=== PATIENT | male | born 1945 | race Caucasian/White ===

== ENCOUNTER 2017-09-22 12:25 | Emergency (ER) | payer OTHER ==
[~2017-09-22 12:25] MED LIST: CLON0.5T3 PO; GABA300C10 PO; NOR10T PO; QUET50TA PO; SERT-274 PO
== END 2017-09-22 14:06 | disposition left against medical advice (07) ==
LOC: ER 12:25
DX: R10.9 Unspecified abdominal pain (principal); Z53.21 Procedure and treatment not carried out due to patient leaving prior to being seen by health care provider

== ENCOUNTER 2019-07-01 10:31 | Emergency (ER) | payer OTHER ==
[~2019-07-01] VITALS: Ht 172.7 cm; Wt 72.6 kg
[~2019-07-01 10:31] MED LIST changes: -CLON0.5T3 PO; +DICY10CA12 PO; +DOCU-94 PO; +DOXY-338 PO; -GABA300C10 PO; +IPRAAER6 IN; +OME20T PO; +PRA25T PO
[2019-07-01] MEDS ORDERED: SODIUM CHLORIDE 0.9% 1,000 ML IV ONE (11:29)
[2019-07-01 12:33] LABS: Basophils # (auto) 0 uL; Basophils % (auto) 0.4 % (0.0-2.0); Eosinophils # (auto) 0.1 uL; Eosinophils % (auto) 2.4 % (0.0-7.0); Hematocrit 36.6 % (41.0-53.0); Hemoglobin 12.3 g/dL (13.5-17.5); Lymphocytes # (auto) 0.5 uL; Lymphocytes % (auto) 8.3 % (10.0-50.0); Mean Corpuscular Hemoglobin 32.4 pg (28.0-32.0); Mean Corpuscular Hgb Conc. 33.6 g/dL (32.0-36.0); Mean Corpuscular Volume 96.2 fL (80.0-100.0); Monocytes # (auto) 0.5 uL; Monocytes % (auto) 9.7 % (0.0-12.0); Neutrophils # (auto) 4.5 uL; Neutrophils % (auto) 79.2 % (37.0-80.0); Nucleated Red Blood Cells % 0.1 %; Platelet Count (auto) 209 10^3/uL (140-450); Red Cell Distribution Width 13.1 % (11.8-14.3); White Blood Cell 5.6 10^3/uL (4.4-10.8)
[2019-07-01 12:34] LABS: Albumin 3.8 g/dL (3.4-5.0); Anion Gap 5 (5-15); Blood Urea Nitrogen 14 mg/dL (7-18); Calcium 9.2 mg/dL (8.5-10.1); Carbon Dioxide 26 mmol/L (21-32); Chloride 103 mmol/L (98-107); Glucose 101 mg/dL (74-106); Potassium 4.7 mmol/L (3.5-5.1); Sodium 134 mmol/L (136-145)
[2019-07-01 12:42] LABS: Alanine Aminotransferase 15 U/L (16-61); Alkaline Phosphatase 98 U/L (45-117); Aspartate Aminotransferase 23 U/L (15-37); BUN/Creatinine Ratio 9.4; Bilirubin, Total 0.5 mg/dL (0.2-1.0); GFR African American 59 mL/min; GFR Non-African American 49 mL/min; Total Protein 8.8 g/dL (6.4-8.2)
[2019-07-01 12:49] LABS: INR 1.13 (0.9-1.15); Partial Thromboplastin Time 29.3 sec (23.64-32.05)
[2019-07-01] MEDS ORDERED: ALBUTEROL SULF 2.5 MG/0.5ML(0.5%) NEB SOLN NEB ONE (13:15)
[2019-07-01] MEDS ORDERED: IPRATROPIUM BROM 0.5 MG/2.5ML INH SOL NEB ONE (13:15)
[2019-07-01 13:16] VITALS: BP 131/72
== END 2019-07-01 14:08 | disposition home or self-care (01) ==
LOC: ER 10:31
DX: F41.9 Anxiety disorder, unspecified (principal); C45.9 Mesothelioma, unspecified; I10 Essential (primary) hypertension; Z90.49 Acquired absence of other specified parts of digestive tract; M54.9 Dorsalgia, unspecified
CPT/HCPCS: 36415; 71250; 80053; 83880; 84484; 85025; 85610; 85730; 93005; 94640; 99284; J7030; J7611; J7644

== ENCOUNTER 2020-11-12 13:14 | Inpatient (IN) | payer OTHER ==
[~2020-11-12] VITALS: Ht 177.8 cm; Wt 75.8 kg
[~2020-11-12 13:14] MED LIST changes: -PRA25T PO; +PRAM0.252 PO; -SERT-274 PO; +SERT50TA19 PO
[2020-11-12] MEDS ORDERED: methylPREDNISolone SOD SUCC 125 MG/2 ML VL IV ONE (13:45)
[2020-11-12] MEDS ORDERED: IPRATROPIUM BROM 0.5 MG/2.5ML INH SOL NEB ONE (13:45)
[2020-11-12] MEDS ORDERED: ALBUTEROL SULF 2.5 MG/0.5ML(0.5%) NEB SOLN NEB ONE (13:45)
[2020-11-12 14:06] LABS: Basophils # (auto) 0.1 10 ^3/uL (0-0.2); Eosinophils # (auto) 0.2 10 ^3/uL (0-0.8); Eosinophils % (auto) 2.1 % (0.0-7.0); Hemoglobin 10.3 g/dL (13.5-17.5); Lymphocytes # (auto) 0.7 10 ^3/uL (0.4-5.4); Lymphocytes % (auto) 7.7 % (10.0-50.0); Mean Corpuscular Hemoglobin 33.2 pg (28.0-32.0); Mean Corpuscular Hgb Conc. 34.5 g/dL (32.0-36.0); Mean Corpuscular Volume 96.4 fL (80.0-100.0); Monocytes % (auto) 11.8 % (0.0-12.0); Neutrophils # (auto) 6.8 10 ^3/uL (1.6-8.6); Neutrophils % (auto) 77.4 % (37.0-80.0); Nucleated Red Blood Cells % 0.1 %; Platelet Count (auto) 236 10^3/uL (140-450); Red Blood Cells 3.11 10^6/uL (4.5-5.90); Red Cell Distribution Width 13.2 % (11.8-14.3); White Blood Cell 8.7 10^3/uL (4.4-10.8)
[2020-11-12 14:21] LABS: Albumin 3.3 g/dL (3.4-5.0); Anion Gap 6 (5-15); Blood Urea Nitrogen 26 mg/dL (7-18); Calcium 8.6 mg/dL (8.5-10.1); Carbon Dioxide 26 mmol/L (21-32); Chloride 104 mmol/L (98-107); Glucose 94 mg/dL (74-106); Potassium 4.6 mmol/L (3.5-5.1); Sodium 136 mmol/L (136-145)
[2020-11-12 14:23] LABS: Alanine Aminotransferase 18 U/L (16-61); Aspartate Aminotransferase 27 U/L (15-37); BUN/Creatinine Ratio 14.8; GFR African American 49 mL/min; GFR Non-African American 40 mL/min
[2020-11-12 14:28] LABS: Alkaline Phosphatase 95 U/L (45-117); Bilirubin, Total 0.5 mg/dL (0.2-1.0); Total Protein 8.6 g/dL (6.4-8.2)
[2020-11-12] MEDS ORDERED: cefTRIAXone 1GM/50ML D5W 50 ML IV ONE (15:45)
[2020-11-12] MEDS ORDERED: AZITHROMYCIN 500MG/ 250ML 250 ML IV ONE (15:45)
[2020-11-12] MEDS ORDERED: MORPHINE SULF INJ 2 MG/ML SYRINGE 1ML IV PRN (16:15)
[2020-11-12] MEDS ORDERED: NITROGLYCERIN 0.4 MG SL TAB SL PRN (16:15)
[2020-11-12] MEDS ORDERED: ACETAMINOPHEN 500 MG TAB PO PRN (18:00)
[2020-11-12] MEDS ORDERED: ONDANSETRON HCL 4 MG/2 ML VIAL IV PRN (18:00)
[2020-11-12] MEDS: PIPERACILLIN-TAZOB 3.375GM 100 ML IV SCH (19:00)
[2020-11-12 19:30] VITALS: BP 133/77
[2020-11-12] MEDS: MORPHINE SULF INJ 2 MG/ML SYRINGE 1ML IV PRN (20:16)
[2020-11-12 20:24] VITALS: BP 133/77
[2020-11-12 21:39] VITALS: BP 133/77
[2020-11-12] MEDS ORDERED: CLON0.5T3 PO (21:40)
[2020-11-12] MEDS ORDERED: LOSA25TA38 PO (21:40)
[2020-11-12] MEDS ORDERED: PRED20TA2 PO (21:40)
[2020-11-12] MEDS ORDERED: PANT40TA2 PO (21:40)
[2020-11-12] MEDS ORDERED: SERT-160 PO (21:40)
[2020-11-12] MEDS ORDERED: MELA3TAB27 PO (21:40)
[2020-11-12 22:00] VITALS: BP 115/60
[2020-11-12] MEDS: TOBRAMYCIN 300 MG/5 ML NEB SOLN NEB SCH (22:10)
[2020-11-13 05:00] VITALS: BP 122/63
[2020-11-13] MEDS: PIPERACILLIN-TAZOB 3.375GM 100 ML IV SCH ×4 (05:40→18:50)
[2020-11-13] MEDS: TOBRAMYCIN 300 MG/5 ML NEB SOLN NEB SCH ×2 (06:23→23:17)
[2020-11-13 08:50] LABS: BUN/Creatinine Ratio 18.3; Calcium 9.1 mg/dL (8.5-10.1); Potassium 4.7 mmol/L (3.5-5.1)
[2020-11-13 09:00] VITALS: BP 137/72
[2020-11-13] MEDS ORDERED: PROMETHAZINE W/CODEINE 5 ML ORAL SYRUP PO PRN (09:30)
[2020-11-13] MEDS: FAMOTIDINE 20 MG TAB PO SCH (12:18)
[2020-11-13] MEDS: ENOXAPARIN SOD 40 MG/0.4 ML SYRINGE SC SCH (12:20)
[2020-11-13 13:00] VITALS: BP 129/71
[2020-11-13 17:00] VITALS: BP 148/80
[2020-11-13] MEDS: MORPHINE SULF INJ 2 MG/ML SYRINGE 1ML IV PRN (17:49)
[2020-11-13] MEDS: BUDESONIDE (INHALATION) 0.5 MG/2 ML NEB NEB SCH (18:00)
[2020-11-13] MEDS: ACETYLCYSTEINE 10 %(100MG/ML) SOL 4ML NEB SCH ×2 (18:00→23:38)
[2020-11-13] MEDS: ALBUTEROL SULF 2.5 MG/0.5ML(0.5%) NEB SOLN NEB PRN ×3 (18:00→23:39)
[2020-11-13 22:00] VITALS: BP 136/72
[2020-11-14] MEDS: MORPHINE SULF INJ 2 MG/ML SYRINGE 1ML IV PRN (02:41)
[2020-11-14] MEDS ORDERED: clonazePAM 0.5 MG TAB PO SCH (03:00)
[2020-11-14 05:00] VITALS: BP 143/70
[2020-11-14] MEDS: PIPERACILLIN-TAZOB 3.375GM 100 ML IV SCH ×3 (06:04→11:47)
[2020-11-14 06:26] LABS: INR 1.14 (0.9-1.15); Partial Thromboplastin Time 27.4 sec (23.0-31.2)
[2020-11-14] MEDS: ALBUTEROL SULF 2.5 MG/0.5ML(0.5%) NEB SOLN NEB PRN ×2 (06:30→12:15)
[2020-11-14] MEDS: ACETYLCYSTEINE 10 %(100MG/ML) SOL 4ML NEB SCH ×2 (06:30→12:15)
[2020-11-14 06:33] LABS: Potassium 4.5 mmol/L (3.5-5.1)
[2020-11-14 06:38] LABS: BUN/Creatinine Ratio 17.1
[2020-11-14 09:00] VITALS: BP 147/82
[2020-11-14] MEDS ORDERED: SERTRALINE HCL 50 MG TAB PO SCH (10:00)
[2020-11-14] MEDS: BUDESONIDE (INHALATION) 0.5 MG/2 ML NEB NEB SCH (10:20)
[2020-11-14] MEDS: TOBRAMYCIN 300 MG/5 ML NEB SOLN NEB SCH (10:26)
[2020-11-14] MEDS ORDERED: LACTULOSE 20Gm/30ML SOLN PO ONE (11:15)
[2020-11-14] MEDS ORDERED: LEVO-28 PO (11:21)
[2020-11-14] MEDS ORDERED: BUDE0.253 IN (11:22)
[2020-11-14] MEDS ORDERED: SENN-62 PO (11:22)
[2020-11-14] MEDS: FAMOTIDINE 20 MG TAB PO SCH (11:45)
[2020-11-14] MEDS: ENOXAPARIN SOD 40 MG/0.4 ML SYRINGE SC SCH (11:45)
[2020-11-14 14:04] VITALS: BP 147/82
== END 2020-11-14 15:15 | disposition home or self-care (01) | DRG 189 ==
LOC: EDBD 13:14 → ER 13:14 → OVERFLOW 16:13 → EAST 20:03
PROVIDERS: ADMIT Hospitalist; ATTEND Hospitalist
DX: J96.21 Acute and chronic respiratory failure with hypoxia (principal); E84.9 Cystic fibrosis, unspecified; Z20.822 Contact with and (suspected) exposure to COVID-19; I27.20 Pulmonary hypertension, unspecified; J84.10 Pulmonary fibrosis, unspecified; Z77.090 Contact with and (suspected) exposure to asbestos; Z99.81 Dependence on supplemental oxygen; Z90.49 Acquired absence of other specified parts of digestive tract; Z79.899 Other long term (current) drug therapy; Z82.49 Family history of ischemic heart disease and other diseases of the circulatory system; Z80.0 Family history of malignant neoplasm of digestive organs
CPT/HCPCS: 36415; 71045; 71250; 80048; 80053; 83880; 84484; 85025; 85379; 85610; 85730; 87426; 93306; 94640; 96365; 96367; 96375; G0378; J0696; J2543

== ENCOUNTER 2021-04-13 11:12 | Inpatient (IN) | payer OTHER ==
[~2021-04-13] VITALS: Ht 172.7 cm; Wt 71.9 kg
[~2021-04-13 11:12] MED LIST changes: +BUDE0.253 IN; +CLON0.5T3 PO; -DOCU-94 PO; -DOXY-338 PO; +LEVO-28 PO; +LOSA25TA38 PO; +MELA3TAB27 PO; -OME20T PO; +PANT40TA2 PO; +PRED20TA2 PO; -QUET50TA PO; +SENN-62 PO; +SERT-160 PO; -SERT50TA19 PO
[2021-04-13] MEDS ORDERED: methylPREDNISolone SOD SUCC 125 MG/2 ML VL IV ONE (11:30)
[2021-04-13 12:31] LABS: Basophils # (auto) 0 10 ^3/uL (0-0.2); Basophils % (auto) 0.3 % (0.0-2.0); Eosinophils # (auto) 0.2 10 ^3/uL (0-0.8); Hematocrit 32.8 % (41.0-53.0); Hemoglobin 11.2 g/dL (13.5-17.5); Lymphocytes # (auto) 0.4 10 ^3/uL (0.4-5.4); Lymphocytes % (auto) 4.1 % (10.0-50.0); Mean Corpuscular Hemoglobin 32.9 pg (28.0-32.0); Mean Corpuscular Hgb Conc. 34.2 g/dL (32.0-36.0); Mean Corpuscular Volume 96.2 fL (80.0-100.0); Monocytes # (auto) 0.6 10 ^3/uL (0-1.3); Monocytes % (auto) 7.4 % (0.0-12.0); Neutrophils # (auto) 7.4 10 ^3/uL (1.6-8.6); Neutrophils % (auto) 86.2 % (37.0-80.0); Red Blood Cells 3.41 10^6/uL (4.5-5.90); Red Cell Distribution Width 13.3 % (11.8-14.3); White Blood Cell 8.6 10^3/uL (4.4-10.8)
[2021-04-13 12:56] LABS: Albumin 3.4 g/dL (3.4-5.0); Calcium 8.9 mg/dL (8.5-10.1); Potassium 4.6 mmol/L (3.5-5.1)
[2021-04-13 15:05] LABS: Bilirubin, Total 0.7 mg/dL (0.2-1.0); Total Protein 8.7 g/dL (6.4-8.2)
[2021-04-13 15:10] LABS: CRP High Sensitivity 7.73 mg/dL (< 0.3)
[2021-04-13] MEDS ORDERED: HEPARIN SODIUM (PORCINE) 5000 UNITS/ML 1ML VIAL IV ONE (16:00)
[2021-04-13] MEDS ORDERED: MORPHINE SULFATE INJECTION 2 MG/ML SYRG IV PRN (16:00)
[2021-04-13] MEDS ORDERED: HYDROcodone-ACET 5/325MG TAB PO PRN (16:00)
[2021-04-13] MEDS ORDERED: NITROGLYCERIN 0.4 MG SL TAB SL PRN (16:00)
[2021-04-13] MEDS ORDERED: HEPARIN DRIP/D5W 100UNITS/ML 250 ML IV SCH (16:00)
[2021-04-13] MEDS ORDERED: SODIUM CHLORIDE 0.9% 1,000 ML IV SCH (16:00)
[2021-04-13] MEDS ORDERED: ACETAMINOPHEN 325 MG TAB PO PRN (16:00)
[2021-04-13] MEDS: DOXYCYCLINE 100MG/250ML 250 ML IV SCH (18:20)
[2021-04-13 19:16] LABS: INR 1.16 (0.9-1.15); Partial Thromboplastin Time 28.8 sec (23.6-33.0)
[2021-04-13] MEDS: ALBUTEROL SULF 2.5 MG/0.5ML(0.5%) NEB SOLN NEB SCH (19:20)
[2021-04-13] MEDS: IPRATROPIUM BROM 0.5 MG/2.5ML INH SOL NEB SCH (19:20)
[2021-04-13] MEDS ORDERED: HEPARIN SODIUM (PORCINE) 5000 UNITS/ML 1ML VIAL ONE (20:53)
[2021-04-13 21:53] LABS: Urine Bacteria NONE SEEN /hpf (None Seen); Urine Blood Negative /uL (Negative); Urine Hyaline Cast FEW /lpf (0 - 2); Urine Specific Gravity 1.019 (1.001-1.035); Urine WBC 2 /hpf (0 - 3)
[2021-04-13 22:06] LABS: Protein, Urine 59.6 mg/dL (0.0-11.9)
[2021-04-13 22:22] LABS: Basophils # (auto) 0 10 ^3/uL (0-0.2); Eosinophils # (auto) 0 10 ^3/uL (0-0.8); Hematocrit 31.9 % (41.0-53.0); Hemoglobin 10.7 g/dL (13.5-17.5); Lymphocytes # (auto) 0.2 10 ^3/uL (0.4-5.4); Lymphocytes % (auto) 4.3 % (10.0-50.0); Mean Corpuscular Hemoglobin 31.8 pg (28.0-32.0); Mean Corpuscular Hgb Conc. 33.4 g/dL (32.0-36.0); Monocytes # (auto) 0.1 10 ^3/uL (0-1.3); Monocytes % (auto) 0.9 % (0.0-12.0); Neutrophils # (auto) 5.2 10 ^3/uL (1.6-8.6); Neutrophils % (auto) 94.8 % (37.0-80.0); Red Blood Cells 3.36 10^6/uL (4.5-5.90); Red Cell Distribution Width 13.1 % (11.8-14.3); White Blood Cell 5.5 10^3/uL (4.4-10.8)
[2021-04-13 23:00] VITALS: BP 120/62
[2021-04-13 23:09] VITALS: BP 118/71
[2021-04-14] MEDS: MORPHINE SULFATE INJECTION 2 MG/ML SYRG IV PRN ×3 (00:37→13:02)
[2021-04-14] MEDS ORDERED: IPRA0.00 IN (00:58)
[2021-04-14] MEDS ORDERED: TRAZ100T3 PO (00:58)
[2021-04-14] MEDS ORDERED: GAB100C GT (00:58)
[2021-04-14] MEDS ORDERED: IBUP600T27 PO (00:58)
[2021-04-14] MEDS ORDERED: OMEP-263 PO (00:58)
[2021-04-14] MEDS ORDERED: LACT10SO3 PO (00:59)
[2021-04-14 03:06] LABS: Basophils # (auto) 0 10 ^3/uL (0-0.2); Eosinophils # (auto) 0 10 ^3/uL (0-0.8); Hematocrit 29.9 % (41.0-53.0); Hemoglobin 10.2 g/dL (13.5-17.5); Lymphocytes # (auto) 0.4 10 ^3/uL (0.4-5.4); Lymphocytes % (auto) 6.9 % (10.0-50.0); Mean Corpuscular Hemoglobin 32.7 pg (28.0-32.0); Mean Corpuscular Hgb Conc. 34.1 g/dL (32.0-36.0); Monocytes # (auto) 0.3 10 ^3/uL (0-1.3); Monocytes % (auto) 5.2 % (0.0-12.0); Neutrophils # (auto) 5.3 10 ^3/uL (1.6-8.6); Neutrophils % (auto) 87.9 % (37.0-80.0); Red Blood Cells 3.11 10^6/uL (4.5-5.90); Red Cell Distribution Width 13.3 % (11.8-14.3)
[2021-04-14 03:23] LABS: INR 1.21 (0.9-1.15); Partial Thromboplastin Time 46.7 sec (23.6-33.0)
[2021-04-14 03:24] LABS: BUN/Creatinine Ratio 19.4; Calcium 8.8 mg/dL (8.5-10.1); Potassium 4.4 mmol/L (3.5-5.1)
[2021-04-14 03:28] LABS: Phosphorus 2.4 mg/dL (2.5-4.90)
[2021-04-14] MEDS: ALBUTEROL SULF 2.5 MG/0.5ML(0.5%) NEB SOLN NEB PRN (04:08)
[2021-04-14] MEDS: DOXYCYCLINE 100MG/250ML 250 ML IV SCH ×2 (04:27→16:35)
[2021-04-14 05:03] VITALS: BP 116/56
[2021-04-14 09:00] VITALS: BP 128/55
[2021-04-14] MEDS: PANTOPRAZOLE 40 MG TAB PO SCH (10:00)
[2021-04-14 10:18] LABS: INR 1.17 (0.9-1.15); Partial Thromboplastin Time 49.9 sec (23.6-33.0)
[2021-04-14] MEDS: HEPARIN DRIP/D5W 100UNITS/ML 250 ML IV SCH (10:54)
[2021-04-14 13:00] VITALS: BP 142/59
[2021-04-14] MEDS: ALBUTEROL SULF 2.5 MG/0.5ML(0.5%) NEB SOLN NEB SCH ×3 (15:16→18:40)
[2021-04-14] MEDS: IPRATROPIUM BROM 0.5 MG/2.5ML INH SOL NEB SCH ×3 (15:16→18:40)
[2021-04-14 17:00] VITALS: BP 139/63
[2021-04-14] MEDS ORDERED: LORazepam 2MG/ML-1ML VIAL IV ONE (17:45)
[2021-04-14] MEDS ORDERED: MORPHINE SULFATE INJECTION 2 MG/ML SYRG IV ONE (17:45)
[2021-04-14 19:22] LABS: INR 1.18 (0.9-1.15); Partial Thromboplastin Time 44.4 sec (23.6-33.0)
[2021-04-14] MEDS: methylPREDNISolone SOD SUCC 40 MG/ML VL IV SCH (21:58)
[2021-04-14 22:00] VITALS: BP 126/58
[2021-04-15 03:19] LABS: INR 1.18 (0.9-1.15); Partial Thromboplastin Time 69.5 sec (23.6-33.0)
[2021-04-15] MEDS: DOXYCYCLINE 100MG/250ML 250 ML IV SCH ×2 (03:51→15:33)
[2021-04-15 05:21] LABS: Basophils # (auto) 0 10 ^3/uL (0-0.2); Eosinophils # (auto) 0 10 ^3/uL (0-0.8); Hematocrit 31.4 % (41.0-53.0); Hemoglobin 10.6 g/dL (13.5-17.5); Lymphocytes # (auto) 0.4 10 ^3/uL (0.4-5.4); Lymphocytes % (auto) 3.7 % (10.0-50.0); Mean Corpuscular Hemoglobin 32.4 pg (28.0-32.0); Mean Corpuscular Hgb Conc. 33.9 g/dL (32.0-36.0); Mean Corpuscular Volume 95.6 fL (80.0-100.0); Monocytes # (auto) 0.3 10 ^3/uL (0-1.3); Monocytes % (auto) 3.3 % (0.0-12.0); Neutrophils # (auto) 8.9 10 ^3/uL (1.6-8.6); Red Blood Cells 3.28 10^6/uL (4.5-5.90); Red Cell Distribution Width 13.1 % (11.8-14.3); White Blood Cell 9.6 10^3/uL (4.4-10.8)
[2021-04-15 05:30] VITALS: BP 122/59
[2021-04-15 05:44] LABS: BUN/Creatinine Ratio 22.4; Calcium 8.7 mg/dL (8.5-10.1); Potassium 4.5 mmol/L (3.5-5.1)
[2021-04-15] MEDS: methylPREDNISolone SOD SUCC 40 MG/ML VL IV SCH ×3 (06:08→21:31)
[2021-04-15] MEDS: ALBUTEROL SULF 2.5 MG/0.5ML(0.5%) NEB SOLN NEB SCH ×4 (06:28→22:49)
[2021-04-15] MEDS: IPRATROPIUM BROM 0.5 MG/2.5ML INH SOL NEB SCH ×4 (06:28→22:49)
[2021-04-15 08:47] VITALS: BP 132/76
[2021-04-15 09:35] LABS: INR 1.21 (0.9-1.15); Partial Thromboplastin Time 56.9 sec (23.6-33.0)
[2021-04-15] MEDS: PANTOPRAZOLE 40 MG TAB PO SCH (09:41)
[2021-04-15] MEDS: SERTRALINE HCL 50 MG TAB PO SCH (09:41)
[2021-04-15] MEDS: HEPARIN DRIP/D5W 100UNITS/ML 250 ML IV SCH ×3 (09:48→22:00)
[2021-04-15] MEDS: ALBUTEROL SULF 2.5 MG/0.5ML(0.5%) NEB SOLN NEB PRN (09:55)
[2021-04-15] MEDS: MORPHINE SULFATE INJECTION 2 MG/ML SYRG IV PRN (13:29)
[2021-04-15 15:20] LABS: INR 1.24 (0.9-1.15); Partial Thromboplastin Time 56.9 sec (23.6-33.0)
[2021-04-15 17:11] VITALS: BP 138/76
[2021-04-15] MEDS ORDERED: LORazepam 2MG/ML-1ML VIAL IV ONE (18:30)
[2021-04-15] MEDS ORDERED: LORazepam 2MG/ML-1ML VIAL IV PRN (18:45)
[2021-04-15 22:35] LABS: INR 1.2 (0.9-1.15); Partial Thromboplastin Time 61.8 sec (23.6-33.0)
[2021-04-15 22:50] VITALS: BP 122/59
[2021-04-16] MEDS: ALBUTEROL SULF 2.5 MG/0.5ML(0.5%) NEB SOLN NEB SCH ×6 (02:45→23:09)
[2021-04-16] MEDS: IPRATROPIUM BROM 0.5 MG/2.5ML INH SOL NEB SCH ×6 (02:45→23:10)
[2021-04-16] MEDS: DOXYCYCLINE 100MG/250ML 250 ML IV SCH ×2 (03:45→16:22)
[2021-04-16 05:56] LABS: INR 1.16 (0.9-1.15); Partial Thromboplastin Time 57.4 sec (23.6-33.0)
[2021-04-16 06:02] VITALS: BP 148/73
[2021-04-16] MEDS: HEPARIN DRIP/D5W 100UNITS/ML 250 ML IV SCH (06:54)
[2021-04-16 07:50] LABS: Calcium 8.7 mg/dL (8.5-10.1); Potassium 3.9 mmol/L (3.5-5.1)
[2021-04-16 07:52] LABS: BUN/Creatinine Ratio 26.8
[2021-04-16 07:59] LABS: Basophils # (auto) 0 10 ^3/uL (0-0.2); Eosinophils # (auto) 0 10 ^3/uL (0-0.8); Hematocrit 29.4 % (41.0-53.0); Hemoglobin 10.1 g/dL (13.5-17.5); Lymphocytes # (auto) 0.3 10 ^3/uL (0.4-5.4); Lymphocytes % (auto) 2.3 % (10.0-50.0); Mean Corpuscular Hemoglobin 32.7 pg (28.0-32.0); Mean Corpuscular Hgb Conc. 34.4 g/dL (32.0-36.0); Mean Corpuscular Volume 95.1 fL (80.0-100.0); Monocytes # (auto) 0.7 10 ^3/uL (0-1.3); Monocytes % (auto) 6.1 % (0.0-12.0); Neutrophils # (auto) 10.9 10 ^3/uL (1.6-8.6); Neutrophils % (auto) 91.6 % (37.0-80.0); Red Blood Cells 3.09 10^6/uL (4.5-5.90); Red Cell Distribution Width 13.2 % (11.8-14.3); White Blood Cell 11.9 10^3/uL (4.4-10.8)
[2021-04-16 09:00] VITALS: BP 135/70
[2021-04-16] MEDS: PANTOPRAZOLE 40 MG TAB PO SCH (09:17)
[2021-04-16] MEDS: methylPREDNISolone SOD SUCC 40 MG/ML VL IV SCH ×2 (09:17→22:00)
[2021-04-16] MEDS: SERTRALINE HCL 50 MG TAB PO SCH (09:18)
[2021-04-16 13:00] VITALS: BP 139/75
[2021-04-16] MEDS ORDERED: guaiFENesin-DM 100/10mg/5ml SYR PO PRN (16:00)
[2021-04-16 16:52] VITALS: BP 144/73
[2021-04-16] MEDS ORDERED: DEXT1SYP9 PO (17:23)
[2021-04-16] MEDS ORDERED: DOXY-332 PO (17:23)
[2021-04-16] MEDS ORDERED: IPRAAER6 IN (17:23)
[2021-04-16] MEDS ORDERED: IPRA0.00 NEB (17:23)
[2021-04-16] MEDS ORDERED: APIX5TAB OR (17:23)
[2021-04-16] MEDS ORDERED: PRED20TA2 PO (17:23)
[2021-04-16] MEDS ORDERED: ALPRAZolam 0.25 MG TAB PO PRN (20:15)
[2021-04-16 22:00] VITALS: BP 140/72
[2021-04-17] MEDS: ALBUTEROL SULF 2.5 MG/0.5ML(0.5%) NEB SOLN NEB SCH ×3 (03:31→10:23)
[2021-04-17] MEDS: IPRATROPIUM BROM 0.5 MG/2.5ML INH SOL NEB SCH ×3 (03:31→10:23)
[2021-04-17] MEDS: DOXYCYCLINE 100MG/250ML 250 ML IV SCH (03:33)
[2021-04-17 05:00] VITALS: BP 142/75
[2021-04-17 07:14] LABS: Calcium 8.7 mg/dL (8.5-10.1); Potassium 4.7 mmol/L (3.5-5.1)
[2021-04-17 07:17] LABS: BUN/Creatinine Ratio 26.4
[2021-04-17 09:00] VITALS: BP 146/76
[2021-04-17] MEDS: methylPREDNISolone SOD SUCC 40 MG/ML VL IV SCH (09:07)
[2021-04-17] MEDS: SERTRALINE HCL 50 MG TAB PO SCH (09:07)
[2021-04-17] MEDS: PANTOPRAZOLE 40 MG TAB PO SCH (09:07)
== END 2021-04-17 10:02 | disposition home health service (06) | DRG 175 ==
LOC: ER 11:12 → EDUNIT# 11:12 → EDBD 11:12 → TELE 15:56 → TELE-EAST 22:38 → TELE-WESTW 04-14 09:08
PROVIDERS: ADMIT Internal Medicine; ATTEND Internal Medicine
PROC: 5A0935A Assistance with Respiratory Ventilation, Less than 24 Consecutive Hours, High Flow/Velocity Cannula (ICD-10-PCS; principal; 2021-04-14)
DX: I26.99 Other pulmonary embolism without acute cor pulmonale (principal); J18.9 Pneumonia, unspecified organism; J96.21 Acute and chronic respiratory failure with hypoxia; I21.A1 Myocardial infarction type 2; N17.0 Acute kidney failure with tubular necrosis; J44.0 Chronic obstructive pulmonary disease with (acute) lower respiratory infection; J44.1 Chronic obstructive pulmonary disease with (acute) exacerbation; J84.112 Idiopathic pulmonary fibrosis; K21.9 Gastro-esophageal reflux disease without esophagitis; F32.9 Major depressive disorder, single episode, unspecified; N18.32 Chronic kidney disease, stage 3b; I12.9 Hypertensive chronic kidney disease with stage 1 through stage 4 chronic kidney disease, or unspecified chronic kidney disease; Z20.822 Contact with and (suspected) exposure to COVID-19; F32.A Depression, unspecified; F41.9 Anxiety disorder, unspecified; G62.9 Polyneuropathy, unspecified; D63.1 Anemia in chronic kidney disease; Z77.090 Contact with and (suspected) exposure to asbestos; Z79.51 Long term (current) use of inhaled steroids; Z80.0 Family history of malignant neoplasm of digestive organs; Z82.49 Family history of ischemic heart disease and other diseases of the circulatory system; Z79.899 Other long term (current) drug therapy; Z90.49 Acquired absence of other specified parts of digestive tract; Z88.1 Allergy status to other antibiotic agents
CPT/HCPCS: 36415; 36600; 71045; 78582; 80048; 80053; 81001; 82570; 82728; 82805; 83605; 83880; 84100; 84156; 84300; 84484; 85025; 85379; 85610; 85730; 86141; 87040; 87426; 92610; 93005; 93970; 94640; 96374; G0378; J3490

== ENCOUNTER 2021-04-21 15:01 | Emergency (ER) | payer OTHER ==
[~2021-04-21] VITALS: Ht 172.7 cm; Wt 59.0 kg
[~2021-04-21 15:01] MED LIST changes: +APIX5TAB OR; +DEXT1SYP9 PO; +DOXY-332 PO; +GAB100C GT; +IBUP600T27 PO; +IPRA0.00 NEB; +LACT10SO3 PO; -LEVO-28 PO; -LOSA25TA38 PO; -MELA3TAB27 PO; +OMEP-263 PO; -SENN-62 PO; +TRAZ100T3 PO
[2021-04-21] MEDS ORDERED: SODIUM BICARBONATE 8.4% INJ 50ML SYRINGE ONE (15:16)
[2021-04-21] MEDS ORDERED: SODIUM BICARBONATE 8.4 % INJ 50ML VIAL IV ONE (18:00)
[2021-04-21 19:00] VITALS: BP 0/0
== END 2021-04-21 15:23 ==
LOC: ER 15:01 → EDBD 15:01 → ER 15:23
DX: I46.9 Cardiac arrest, cause unspecified (principal); I10 Essential (primary) hypertension; E11.9 Type 2 diabetes mellitus without complications; J44.9 Chronic obstructive pulmonary disease, unspecified; Z90.49 Acquired absence of other specified parts of digestive tract; Z90.89 Acquired absence of other organs; Z79.2 Long term (current) use of antibiotics; Z79.899 Other long term (current) drug therapy; Z88.1 Allergy status to other antibiotic agents
CPT/HCPCS: 92950; 93005